=== PATIENT | female | born 1955 | race Caucasian/White ===

== ENCOUNTER → 2017-02-27 | Outpatient (CLI) | payer BC ==
--- NOTE | 2017-02-27 13:43 | MM ---
Reason for exam: screening (asymptomatic). Last mammogram was performed 1 year and 11 months ago. History: Patient is postmenopausal, has history of breast cancer at age 55, and history of other cancer. Benign US LT VAD breast biopsy of the left breast, May 29, 2012. Malignant US RT VAD breast biopsy of the right breast, August 19, 2011. Lumpectomy of the right breast, August 2010. Radiation therapy, 2010. Ultrasound-guided core biopsy of the left breast, March 25, 2002. Benign core biopsy of the left breast, 2001. Took estrogen for 4 years beginning at age 45. Physical Findings: A clinical breast exam by your physician is recommended on an annual basis and results should be correlated with mammographic findings. MG 3D Diag Mammo W/Cad EMILY Bilateral CC and MLO view(s) were taken. Prior study comparison: March 16, 2015, bilateral MG diagnostic mammo w CAD EMILY. March 15, 2014, bilateral MG diagnostic mammo w CAD EMILY. The breast tissue is heterogeneously dense. This may lower the sensitivity of mammography. Post biopsy change in the left breast. Post therapy/lumpectomy change in the right breast. These results were verbally communicated with the patient and result sheet given to the patient on 02/27/17. ASSESSMENT: Benign, BI-RAD 2 RECOMMENDATION: Routine screening mammogram of both breasts in 1 year.
== END | disposition home or self-care (01) ==
LOC: RADMAMWWP 12:54
PROVIDERS: ATTEND Family Medicine
DX: R92.8 Other abnormal and inconclusive findings on diagnostic imaging of breast (principal); Z85.3 Personal history of malignant neoplasm of breast
CPT/HCPCS: G0204; G0279

== ENCOUNTER 2017-10-31 06:49 | Day surgery (SDC) | payer BC ==
[2017-10-28 11:59] VITALS: BMI 32.8
[~2017-10-31 06:49] MED LIST: LACTATED RINGERS 1,000 ML IV SCH; LIDOCAINE 1% 20 ML VIAL (10MG/ML) FOR IV START INTRADERMA PRN; MIDAZOLAM 2 MG/2 ML VIAL IV PRN
[2017-10-31 07:17] VITALS: RESP 20; TEMP 98.2
[2017-10-31 07:21] LABS: Glucose,Whole Blood 96 mg/dL (75-99)
[2017-10-31] MEDS ORDERED: PROPOFOL 10 MG/ML 20 ML VIAL IV ONE (07:36)
--- NOTE | 2017-10-31 08:07 | P.PCN ---
Date of Procedure: 10/31/17 Procedure(s) Performed: Brief history: Patient is a pleasant 62-year-old white female, scheduled for an elective upper endoscopy as well as colonoscopy as a part of evaluation of long-standing history of GERD and prior history of colon polyps Procedure performed: Esophagogastroduodenoscopy with biopsy Colonoscopy with biopsy and snare polypectomy Preoperative diagnosis: GERD History of colon polyps Anesthesia: MAC Procedure: After informed consent was obtained from the patient was brought into the endoscopy unit and IV sedation was administered by anesthesia under continuous monitoring. Initially upper endoscopy was done. The Olympus GF 160 video endoscope was inserted inserted into the mouth and esophagus intubated without any difficulty and was gradually advanced into the stomach and duodenum and carefully examined. The bulb and second part of the duodenum appeared normal. The scope was then withdrawn into the stomach adequately insufflated with air and upon careful examination the antrum and body, cardia and fundus appeared normal. The scope was then withdrawn into the esophagus. The GE junction was located at 40 cm to the incisors. It appeared regular with no erythema erosions or ulcerations. Rest of the esophagus appeared normal. Patient tolerated the procedure well. At this time the patient continued to remain sedation. Initial digital rectal examination was normal. Olympus CF 160 video colonoscope was then inserted into the rectum and gradually advanced to the cecum without any difficulty. Careful examination was performed as the scope was gradually being withdrawn. The prep was excellent. The cecum, ascending colon, appeared normal. In the transverse colon there was a 2-3 mm sessile polyp removed by biopsy. The rest of the transverse colon, descending colon, sigmoid colon and rectum appeared normal. The distal rectum there was a 1 cm polyp removed by snare polypectomy. Scattered sigmoid diverticulosis. Retroflexion was performed in the rectum and no lesions were noted. Patient tolerated the procedure well. Impression: 1. Upper endoscopy revealed moderate size hiatal hernia, short segment [place]' s esophagus and gastritis 2. Coloscopy revealed 2-3 mm sessile transverse colon polyp status post removal by biopsy and 1 cm rectal polyp status post polypectomy. Scattered sigmoid diverticulosis Recommendations: Findings of this examination were discussed with the patient as well as her family. She was advised to follow with the biopsy results. She will continue with omeprazole 20 mg twice daily and follow antrum reflux measures. She can have a repeat colonoscopy in 5 years.
[2017-10-31 08:22] LABS: Glucose,Whole Blood 99 mg/dL (75-99)
[2017-10-31 08:33] VITALS: BP 134/79; PULSE 64
== END 2017-10-31 09:07 | disposition home or self-care (01) ==
LOC: ORWHC2ENDO 06:49
PROVIDERS: ATTEND Internal Medicine Gastroenterology
DX: Z12.11 Encounter for screening for malignant neoplasm of colon (principal); K29.50 Unspecified chronic gastritis without bleeding; K22.70 Barrett's esophagus without dysplasia; D12.3 Benign neoplasm of transverse colon; K62.1 Rectal polyp; K57.30 Diverticulosis of large intestine without perforation or abscess without bleeding; K44.9 Diaphragmatic hernia without obstruction or gangrene; K21.9 Gastro-esophageal reflux disease without esophagitis; I10 Essential (primary) hypertension; E78.5 Hyperlipidemia, unspecified; E11.9 Type 2 diabetes mellitus without complications; Z79.4 Long term (current) use of insulin; Z79.899 Other long term (current) drug therapy; Z88.1 Allergy status to other antibiotic agents; Z88.5 Allergy status to narcotic agent
CPT/HCPCS: 88305; 45380; 45385; 43239; J2704

== ENCOUNTER → 2019-02-25 | Outpatient (CLI) | payer BC | END | disposition home or self-care (01) | LOC: RADUSWWP 12:11 | PROVIDERS: ATTEND Internal Medicine Hematology & Oncology | DX: Z53.9 Procedure and treatment not carried out, unspecified reason (principal) ==

== ENCOUNTER → 2019-02-25 | Outpatient (CLI) | payer BC ==
--- NOTE | 2019-02-25 14:14 | US ---
EXAMINATION TYPE: US abdomen complete DATE OF EXAM: 02/25/2019 COMPARISON: NONE CLINICAL HISTORY: D72.820. Lymphocytosis, history of breast cancer EXAM MEASUREMENTS: Liver Length: 17.5 cm Gallbladder Wall: 0.3 cm CBD: 0.4 cm Spleen: 12.1 cm Right Kidney: 11.1 x 4.8 x 4.0 cm Left Kidney: 10.9 x 4.9 x 4.6 cm Technical limitations due to large amount of overlying bowel content Pancreas: Obscured by bowel gas Liver: There is increased echogenicity of the hepatic parenchyma with diminished visualization of the portal triads most commonly relating to hepatic steatosis and limiting evaluation for underlying hep atic masses. Gallbladder: no evidence of stones Evidence for sonographic Alba's sign: no CBD: wnl Spleen: wnl Right Kidney: no evidence of hydronephrosis Left Kidney: no evidence of hydronephrosis Upper IVC: wnl Abd Aorta: visualized portions appear wnl The intrahepatic portion of the IVC and proximal abdominal aorta are within normal limits. There is no evidence of cholelithiasis. Common bile duct is unremarkable. The visualized portions of the floyd creas are homogenous. The spleen is unremarkable. Kidneys are symmetric and free of hydronephrosis. No renal lesions are seen. IMPRESSION: 1. Sonographic findings most commonly related to hepatic steatosis. Correlate with liver function israel ts. This limits evaluation for hepatic masses. In this patient with breast cancer there is concern fo r metastasis three-phase enhanced CT or MR would be recommended. 2. No evidence of splenomegaly.
--- NOTE | 2019-02-26 07:37 | MM ---
Reason for exam: additional evaluation requested from prior study. Last mammogram was performed 2 years ago. History: Patient is postmenopausal, has history of breast cancer at age 55, and history of other cancer. Benign US LT VAD breast biopsy of the left breast, May 29, 2012. Malignant US RT VAD breast biopsy of the right breast, August 19, 2011. Lumpectomy of the right breast, August 2010. Radiation therapy, 2010. Ultrasound-guided core biopsy of the left breast, March 25, 2002. Benign core biopsy of the left breast, 2001. Took estrogen for 4 years beginning at age 45. Physical Findings: Nurse Summary: 0.5cm nodule in the left breast at 12 o'clock (nurse dw). MG Diagnostic Mammo w CAD EMILY Bilateral CC and MLO view(s) were taken. Prior study comparison: February 27, 2017, bilateral MG 3d diag mammo w/cad EMILY. March 16, 2015, bilateral MG diagnostic mammo w CAD EMILY. The breast tissue is heterogeneously dense. This may lower the sensitivity of mammography. Left lateral far posterior depth asymmetry improves on spot compression view and 3D view appears as fibroglandular tissue. Precautionary ultrasound. These results were verbally communicated with the patient and result sheet given to the patient on 02/25/19. ASSESSMENT: Incomplete: need additional imaging evaluation, BI-RAD 0 RECOMMENDATION: Ultrasound of the left breast.
--- NOTE | 2019-02-26 07:38 | USB ---
Reason for exam: additional evaluation requested from abnormal screening. History: Patient is postmenopausal, has history of breast cancer at age 55, and history of other cancer. Benign US LT VAD breast biopsy of the left breast, May 29, 2012. Malignant US RT VAD breast biopsy of the right breast, August 19, 2011. Lumpectomy of the right breast, August 2010. Radiation therapy, 2010. Ultrasound-guided core biopsy of the left breast, March 25, 2002. Benign core biopsy of the left breast, 2001. Took estrogen for 4 years beginning at age 45. US Breast Limited LT Left limited breast ultrasound including focal area of concern, retroareolar and axilla demonstrates a 0.5 x 0.4 x 0.6cm cystic lesion at 12 o'clock, a 0.4 x 0.4 x 0.4cm lesion too small to characterize at 2 o'clock and a 0.4 x 0.4 x 0.4cm cystic lesion at 4 o'clock. Benign. These results were verbally communicated with the patient and result sheet given to the patient on 02/25/19. ASSESSMENT: Benign, BI-RAD 2 RECOMMENDATION: Follow-up diagnostic mammogram of both breasts in 1 year.
== END | disposition home or self-care (01) ==
LOC: RADMAMWWP 12:13
PROVIDERS: ATTEND Family Medicine
DX: R92.8 Other abnormal and inconclusive findings on diagnostic imaging of breast (principal); K76.0 Fatty (change of) liver, not elsewhere classified; K76.89 Other specified diseases of liver; D72.820 Lymphocytosis (symptomatic); Z85.3 Personal history of malignant neoplasm of breast; Z88.1 Allergy status to other antibiotic agents
CPT/HCPCS: 76700; 77066

== ENCOUNTER → 2019-05-14 | Outpatient (CLI) | payer BC ==
--- NOTE | 2019-05-14 14:06 | US ---
EXAMINATION TYPE: US thyroid st tissue head/neck DATE OF EXAM: 05/14/2019 COMPARISON: NONE CLINICAL HISTORY: E04.1 non toxic single nodule. Patient states having an exam done elsewhere at the showed a thyroid nodule. GLAND SIZE: Right Lobe: 5.5 x 2.4 x 2.0 cm Overall Parenchyma: heterogenous Left Lobe: 3.1 x 1.3 x 1.3 cm Overall Parenchyma: heterogeneous Isthmus Thickness: 0.7 cm NODULES RIGHT: # of nodules measured on right: 2 1. 3.3 X 2.8 x 2.7 cm mixed nodule at the lower pole with well-defined margins. This nodule is wid er than tall and shows intranodular vascularity. Prior size: No previous 2. 0.5 X 0.3 x 0.3 cm hypoechoic nodule at the upper pole with well-defined margins. This nodule is tall as wide and shows no intranodular vascularity. Prior size: No previous LEFT: # of nodules measured on left: 1 1. 0.6 X 0.5 x 0.4 cm hypoechoic nodule at the mid pole with well-defined margins. This nodule is wider than tall and shows no intranodular vascularity. Prior size: No previous ISTHMUS: # of nodules measured in the isthmus: 1 1. 0.7 X 0.8 x 0.6 cm hypoechoic nodule at the left lateral pole with well-defined margins. This n odule is wider than tall and shows intranodular vascularity. Prior size: No previous Bilateral neck scanned, no evidence of lymphadenopathy. IMPRESSION: 3.3 cm right thyroid nodule for which fine-needle aspiration is recommended given the siz e. Smaller subcentimeter thyroid nodules can be followed.
== END | disposition home or self-care (01) ==
LOC: RADUSWWP 12:14
PROVIDERS: ATTEND Family Medicine
DX: E04.2 Nontoxic multinodular goiter (principal)
CPT/HCPCS: 76536

== ENCOUNTER → 2019-05-17 | Outpatient (CLI) | payer BC ==
--- NOTE | 2019-05-19 22:20 | MR ---
EXAMINATION TYPE: MR abdomen wo con DATE OF EXAM: 05/17/2019 COMPARISON: NONE HISTORY: 63-year-old female D44.11 Neoplasm, hx of CA of right adrenal gland. TECHNIQUE: Multiplanar, multisequence images of the abdomen were obtained without IV contrast. The pa tient was claustrophobic and was unable to complete the exam. FINDINGS: Excessive motion artifacts for adequate assessment of hepatic steatosis. Liver is mildly enlarged 18. 6 cm. No biliary ductal dilatation. Gallbladder within normal limits. 2.2 cm cyst upper pole left kidney. Small 1 cm cortical cyst midpole right kidney. Spleen, left adrenal gland, and pancreas show no gross abnormality on these limited noncontrast image s. Suggestion of an underlying 2.0 cm nodule within the right adrenal gland, refer to coronal series 201 image 28. There is excessive motion artifact on the axial T1-weighted sequences for adequate visuali zation. No obvious upper abdominal lymphadenopathy, ascites fluid, or gross bowel abnormality seen. IMPRESSION: 1. The exam had to be stopped as the patient was claustrophobic and could not continue. Only a joyner l T2 sequence and multiple motion degraded axial T1 sequences were obtained. 2. Hepatomegaly at 18.6 cm. The extent of patient motion does not allow for accurate assessment of he patic steatosis or for focal lesions. 3. A couple renal cortical cysts. 4. Apparent nodularity of the right adrenal gland measuring 2.0 cm. This is only seen on coronal seri es. The extent of motion on the axial T1-weighted sequences does not allow adequate visualization. Consider repeating the exam with sedation or pursuing contrasted enhanced CT.
== END | disposition home or self-care (01) ==
LOC: RADMRIMAIN 12:36
PROVIDERS: ATTEND Physician Assistant Medical
DX: N28.1 Cyst of kidney, acquired (principal); R16.0 Hepatomegaly, not elsewhere classified; E27.8 Other specified disorders of adrenal gland; D44.12 Neoplasm of uncertain behavior of left adrenal gland; Z85.3 Personal history of malignant neoplasm of breast; Z85.830 Personal history of malignant neoplasm of bone
CPT/HCPCS: 74181

== ENCOUNTER 2019-06-11 12:47 | Day surgery (SDC) | payer BC ==
[2019-06-11 13:13] VITALS: RESP 18; TEMP 97.4
[2019-06-11 14:07] VITALS: BP 112/76; PULSE 94
--- NOTE | 2019-06-11 15:39 | US ---
EXAMINATION TYPE: US FNA thyroid first lesion DATE OF EXAM: 06/11/2019 COMPARISON: Ultrasound 05/14/2019 HISTORY: Right Thyroid nodule. Maximal barrier technique was utilized. After informed consent, skin overlying the right thyroid nod ule was localized with ultrasound and the overlying skin prepped and draped. Ultrasound was utilized using sterile technique. Lidocaine was used for local anesthesia. Five passes with a 25-gauge needle were made into the nodule and aspirated specimen was submitted to cytology. Following the procedure hemostasis achieved. No immediate complication. The patient discharged in stable condition. IMPRESSION: STATUS POST ULTRASOUND GUIDED FINE NEEDLE ASPIRATION OF THYROID NODULE, PATHOLOGY IS PEND ING. THIS PROCEDURE WAS PERFORMED BY THE UNDERSIGNED.
== END 2019-06-11 14:28 | disposition home or self-care (01) ==
LOC: RADPROMAIN 12:47
PROVIDERS: ATTEND Family Medicine
DX: E04.1 Nontoxic single thyroid nodule (principal)
CPT/HCPCS: 10005; 88173; 88305

== ENCOUNTER → 2019-06-17 | Outpatient (CLI) | payer BC ==
[2019-06-17 14:53] LABS: African American GFR (CKD) >90 (>60 ml/min/1.73 sqM); Blood Urea Nitrogen 20 mg/dL (7-17); Non-African American GFR(CKD) >90 (>60 ml/min/1.73 sqM)
--- NOTE | 2019-06-17 15:49 | CT ---
EXAMINATION TYPE: CT abdomen w con DATE OF EXAM: 06/17/2019 HISTORY: Adrenal gland neoplasm CT DLP: 1244mGycm Automated Exposure Control for Dose Reduction was Utilized. CONTRAST: CT scan of the abdomen is performed with oral and with IV Contrast, patient injected with 100 mL of I sovue 300. COMPARISON: CT September 27, 2009. MR abdomen May 17, 2019. FINDINGS: LUNG BASES: Partial visualization of suspected prominent tissue bilateral breast with possible biopsy clip or dystrophic calcification axial image 1 series 7. LIVER/GB: Liver is overall low dense consistent with diffuse fatty infiltration. Liver size stable an d is thought upper limits of normal. PANCREAS: No significant abnormality is seen. SPLEEN: Small splenule in splenic hilum. ADRENALS: There is 2.3 x 1.4 cm right adrenal mass axial image 20 which is new from 2010 study. This is fairly stable from recent MRI. There is suspected some signal dropout favoring lipid rich adenoma. CT was not protocoled in adrenal gland protocol to further evaluate. KIDNEYS: Simple appearing thin-walled 2.0 cm cyst posteriorly left kidney measures 29 series 7 upper midpole level. BOWEL: New Eehon-rs-lfrsvnyl size hiatal hernia. LYMPH NODES: No greater than 1cm abdominal lymph nodes are appreciated. OSSEOUS STRUCTURES: Multilevel spurring in the thoracolumbar spine with slight scoliotic curvature. OTHER: Stable right adrenal mass favoring benign lipid rich adenoma but is concerning due to being ne w from 2010 CT. Suboptimally evaluated on this study as was not performed adrenal protocol which incl udes without and with IV contrast imaging. IMPRESSION: No significant acute finding is seen to account for patient's clinical symptoms.
== END | disposition home or self-care (01) ==
LOC: RADCTMAIN 13:58
PROVIDERS: ATTEND Physician Assistant Medical
DX: D44.12 Neoplasm of uncertain behavior of left adrenal gland (principal); D44.11 Neoplasm of uncertain behavior of right adrenal gland; Z85.3 Personal history of malignant neoplasm of breast; E11.65 Type 2 diabetes mellitus with hyperglycemia; E78.2 Mixed hyperlipidemia
CPT/HCPCS: 82565; 84520; 74160; 36415; Q9967

== ENCOUNTER → 2019-12-30 | Outpatient (CLI) | payer MEDICARE, BC ==
[2019-12-30 14:24] LABS: African American GFR (CKD) >90 (>60 ml/min/1.73 sqM); Blood Urea Nitrogen 22 mg/dL (7-17); Non-African American GFR(CKD) >90 (>60 ml/min/1.73 sqM)
--- NOTE | 2019-12-30 15:23 | CT ---
EXAMINATION TYPE: CT abdomen wo/w con DATE OF EXAM: 12/30/2019 COMPARISON: 06/17/2019 and 09/27/2009 HISTORY: Neoplasm, uncertain behavior adrenal gland. CT DLP: 2323.2 mGycm CONTRAST: CT scan of the abdomen and pelvis is performed with Oral Contrast and without and with IV Contrast, p atient injected with 100 mL of Isovue M300. FINDINGS: LUNG BASES-: No visible nodule. No infiltrate. LIVER/GB: No calcified gallstones. Fatty liver noted. No space occupying hepatic lesion. Biliary tr ee is of normal caliber. PANCREAS: No inflammation. No distinct mass. SPLEEN: No splenic enlargement. No lesion seen. ADRENALS: Bilateral adrenal nodules are noted dating back to 2009. Right adrenal nodule currently jacey sures 1.4 x 2.4 cm versus 2.4 x 1.4 cm on the recent previous. Left adrenal nodule is unchanged at th at 1 cm. KIDNEYS/BLADDER: No hydronephrosis. No nephrolithiasis. Renal cystic changes identified. Urinary bl adder grossly unremarkable. BOWEL: Normal appendix. Normal bowel caliber. No inflammation. GENITAL ORGANS: No gross abnormality. LYMPH NODES: No greater than 1cm abdominal or pelvic lymph nodes are appreciated. AORTA: No significant abnormality. OSSEOUS STRUCTURES: No significant abnormality is seen. OTHER: No significant additional abnormality is seen. IMPRESSION: 1. Stable adrenal adenomas. 2. Fatty liver. 3. Renal cystic changes.
== END | disposition home or self-care (01) ==
LOC: RADCTMAIN 13:44
PROVIDERS: ATTEND Family Medicine
DX: K76.0 Fatty (change of) liver, not elsewhere classified (principal); D35.00 Benign neoplasm of unspecified adrenal gland; N28.1 Cyst of kidney, acquired; D44.11 Neoplasm of uncertain behavior of right adrenal gland; D44.12 Neoplasm of uncertain behavior of left adrenal gland; Z01.812 Encounter for preprocedural laboratory examination
CPT/HCPCS: 82565; 84520; 74170; 36415; Q9967 ×2

== ENCOUNTER → 2020-06-02 | Outpatient (CLI) | payer MEDICARE, BC ==
--- NOTE | 2020-06-05 08:20 | MM ---
Reason for exam: additional evaluation requested from prior study. Last mammogram was performed 1 year and 3 months ago. History: Patient is postmenopausal, has history of breast cancer at age 55, and history of other cancer. Benign US LT VAD breast biopsy of the left breast, May 29, 2012. Malignant US RT VAD breast biopsy of the right breast, August 19, 2011. Lumpectomy of the right breast, August 2010. Radiation therapy, 2010. Ultrasound-guided core biopsy of the left breast, March 25, 2002. Benign core biopsy of the left breast, 2001. Took estrogen for 4 years beginning at age 45. Physical Findings: Nurse Summary: 0.5cm nodule in the left breast at 12 o'clock nipple (nurse dw). MG Diagnostic Mammo w CAD EMILY Bilateral CC and MLO view(s) were taken. Prior study comparison: February 25, 2019, bilateral MG diagnostic mammo w CAD EMILY. February 27, 2017, bilateral MG 3d diag mammo w/cad EMILY. The breast tissue is heterogeneously dense. This may lower the sensitivity of mammography. There are benign appearing round calcifications bilaterally. Previous mammotome biopsy in the left breast. There is no discrete abnormality. These results were verbally communicated with the patient and result sheet given to the patient on 06/02/20. ASSESSMENT: Incomplete: need additional imaging evaluation, BI-RAD 0 RECOMMENDATION: Ultrasound of the left breast.
--- NOTE | 2020-06-05 08:22 | USB ---
Reason for exam: additional evaluation requested from abnormal screening. History: Patient is postmenopausal, has history of breast cancer at age 55, and history of other cancer. Benign US LT VAD breast biopsy of the left breast, May 29, 2012. Malignant US RT VAD breast biopsy of the right breast, August 19, 2011. Lumpectomy of the right breast, August 2010. Radiation therapy, 2010. Ultrasound-guided core biopsy of the left breast, March 25, 2002. Benign core biopsy of the left breast, 2001. Took estrogen for 4 years beginning at age 45. US Breast Limited LT Left limited breast ultrasound including focal area of concern, retroareolar and axilla demonstrates a 0.4 x 0.6 x 0.3cm oval, complex, cystic, stable lesion at 12 o'clock BB, a linear, hyperechoic clip or dystrophic calcifications at 3 o'clock questionable BB marker and a 2.8 x 1.7 x 0.8cm lymph node at the axilla, benign fatty hilum. These results were verbally communicated with the patient and result sheet given to the patient on 06/02/20. ASSESSMENT: Benign, BI-RAD 2 RECOMMENDATION: Routine screening mammogram of both breasts in 1 year.
== END | disposition home or self-care (01) ==
LOC: RADMAMWWP 14:23
PROVIDERS: ATTEND Family Medicine
DX: N63.20 Unspecified lump in the left breast, unspecified quadrant (principal)
CPT/HCPCS: 77066

== ENCOUNTER → 2020-06-02 | Outpatient (CLI) | payer MEDICARE, BC ==
--- NOTE | 2020-06-02 16:14 | XR ---
EXAMINATION TYPE: XR chest 2V DATE OF EXAM: 06/02/2020 COMPARISON: None INDICATION: History of sarcoma TECHNIQUE: Frontal and lateral views of the chest are obtained. FINDINGS: The heart size is normal. The pulmonary vasculature is normal. Some mild infiltrate may be at the cardiac apex. Correlate for lingular atelectasis.. IMPRESSION: 1. May be some lingular atelectasis. 2. Suspicious changes to suggest metastasis are not identified
== END | disposition home or self-care (01) ==
LOC: RADXRMAIN 15:41
PROVIDERS: ATTEND Physician Assistant
DX: C49.22 Malignant neoplasm of connective and soft tissue of left lower limb, including hip (principal); Z88.1 Allergy status to other antibiotic agents; Z88.8 Allergy status to other drugs, medicaments and biological substances
CPT/HCPCS: 71046

== ENCOUNTER → 2023-05-28 | Outpatient (CLI) | payer MEDICARE ==
--- NOTE | 2023-05-28 15:01 | XR ---
EXAMINATION TYPE: XR chest 2V DATE OF EXAM: 05/28/2023 COMPARISON: NONE HISTORY: Cough, shortness of breath and wheezing. TECHNIQUE: Frontal and lateral views of the chest are obtained. FINDINGS: There are some patchy airspace opacity throughout the left lung which is suspicious for pn eumonia. The right lung is clear. The cardiac silhouette and pulmonary vessels are within normal limits. IMPRESSION: Opacity throughout the left lung is suspicious for pneumonia. Follow to resolution is re commended.
== END | disposition home or self-care (01) ==
LOC: RADXRYALE 14:42
PROVIDERS: ATTEND Physician Assistant
DX: R05.1 Acute cough (principal); R06.02 Shortness of breath; R91.8 Other nonspecific abnormal finding of lung field
CPT/HCPCS: 71046

== ENCOUNTER → 2023-06-17 | Outpatient (CLI) | payer MEDICARE ==
--- NOTE | 2023-06-21 18:04 | XR ---
EXAMINATION TYPE: XR chest 2V DATE OF EXAM: 06/17/2023 9:45 AM CLINICAL INDICATION:Female, 67 years old with history of [id number] COUGH,SOB; [facility]. Sarcoma history. COMPARISON: 05/28/2023 and 06/02/2020 chest x-rays TECHNIQUE: XR chest 2V. Frontal PA and lateral views of the chest. FINDINGS: Lines/Tubes: None. Heart/mediastinum: Cardiomediastinal silhouette is stable. Heart size upper normal. The aorta appea rs mildly tortuous, a finding usually associated with either atherosclerosis or systemic hypertension . Pulmonary vascularity: Not increased. Lungs/Pleura: Examination limited by patient body habitus. Apparent opacity over the left mid to lowe r lung appears less prominent than 05/28/2023, now more similar to 06/02/2020. This may represent digestion operator earline changes and soft tissue overlap but other etiology cannot be excluded. No pleural effusion or pne umothorax. Mild chronic interstitial changes again noted. Musculoskeletal: No acute osseous abnormality demonstrated in the limits of the exam. Moderate degen erative changes of the spine and partially visualized shoulders. Other findings: None. IMPRESSION: 1. Improved apparent opacity over the left lung, as described. This may represent chronic changes an d soft tissue overlap, but other etiology cannot be excluded. Given the cancer history, one may consi costa CT of the chest for better evaluation, versus continued radiographic follow-up. 2. Otherwise no acute finding.
== END | disposition home or self-care (01) ==
LOC: RADXRYALE 09:35
PROVIDERS: ATTEND Physician Assistant
DX: R91.8 Other nonspecific abnormal finding of lung field (principal); R05.9 Cough, unspecified; R06.02 Shortness of breath; Z85.89 Personal history of malignant neoplasm of other organs and systems
CPT/HCPCS: 71046

== ENCOUNTER → 2023-07-03 | Outpatient (CLI) | payer MEDICARE ==
[2023-07-03 14:12] LABS: African American GFR (CKD) >90 (>60 ml/min/1.73 sqM); Blood Urea Nitrogen 19 mg/dL (7-17); Non-African American GFR(CKD) 90 (>60 ml/min/1.73 sqM)
--- NOTE | 2023-07-03 15:27 | CT ---
EXAMINATION TYPE: CT chest wo/w con DATE OF EXAM: 07/03/2023 COMPARISON: Most recent chest x-ray June 17, 2023 and older studies HISTORY: COUGH AND SOB X3 MONTHS. COMPARE TO ABNORMAL PRIOR CXR. CT DLP: 1019.70 mGycm. Automated Exposure Control for Dose Reduction was Utilized. TECHNIQUE: CT scan of the thorax is performed following without and with IV Contrast, patient inject ed with 100ML mL of Isovue 300. FINDINGS: LUNGS: Reticulonodular opacities in the left lung with relative sparing of the apex remain present. S ome less prominent areas of involvement in the right lung base are noted. No pleural effusion or pneu mothorax is seen bilaterally. Few scattered micronodules in the right lung, for reference is 5 mm rig ht lower lobe nodule axial image 34 posteriorly. Mild left basilar linear scarring and/or atelectasis . No focal consolidation. No greater than 6 mm pulmonary nodules or masses. Some areas of mucous plug ging in the lower lungs is thought present bilaterally. MEDIASTINUM: Coronary artery calcification is present which is noted marker for underlying coronary a rtery disease. Prominent but subcentimeter paratracheal lymph node axial image 16. No definitive grea ter than 1 cm bilateral hilar or mediastinal adenopathy. Prominent but subcentimeter pericardial lymp h node axial image 37 no cardiomegaly or pericardial effusion. OTHER: Moderate size hiatal hernia containing intra-abdominal fat. Liver is diffusely low dense on no ncontrast images relative to the spleen consistent with fatty infiltrative hepatocellular disease. Bi lateral small thin-walled cysts in both kidneys are partially imaged. Slight scoliotic curvature with moderate multilevel spurring in the thoracic spine. IMPRESSION: Reticulonodular opacities diffusely throughout the left lung except sparing the apex and patchy similar opacities right lung base, given finding of improving opacities on most recent x-rays resolving atypical infection would be favored. Other etiologies are not excluded and strict clinical correlation is advised.
== END | disposition home or self-care (01) ==
LOC: RADCTMAIN 13:29
PROVIDERS: ATTEND Family Medicine
DX: Z01.812 Encounter for preprocedural laboratory examination (principal); R06.02 Shortness of breath; R05.9 Cough, unspecified; R91.8 Other nonspecific abnormal finding of lung field; R93.89 Abnormal findings on diagnostic imaging of other specified body structures; Z85.3 Personal history of malignant neoplasm of breast; Z85.830 Personal history of malignant neoplasm of bone
CPT/HCPCS: 82565; 84520; 71270; 36415; Q9967

== ENCOUNTER → 2023-12-10 | Outpatient (CLI) | payer MEDICARE ==
--- NOTE | 2023-12-14 09:27 | MR ---
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 TECHNIQUE: Multiplanar multi-sequence imaging was performed without contrast. Post contrast imaging was performed. Post IV contrast subtraction images were also submitted for review. IV Contrast: 10 cc Gadavist FINDINGS: LOWER CHEST: Atelectasis changes in the lingula. Nonenlarged right epicardial fat lymph nodes measuri ng up to 5 mm in short axis. ABDOMEN Liver: No evidence for cirrhosis. Signal dropout on chemical shift out of phase imaging. Gallbladder and Bile ducts: No evidence for ductal dilation, or biliary stricture or evidence of chol edocholithiasis. The gallbladder demonstrates high T1 intrinsic gallstones layering dependently withe suspected adherent stone along the lateral wall. Pancreas: No ductal dilation. No evidence for solid mass. Spleen: Normal for size. Adrenal glands: Right adrenal nodule measuring up to 30 mm with signal dropout on chemical shift of p hase imaging compatible with adrenal adenoma. Possible small adrenal adenoma in the left adrenal glan d measuring 9 mm. Kidneys: Enhancing right renal cyst neoplasm measuring 21 mm with an adjacent 22 mm cyst. Left renal cysts measuring up tor 29 mm. No suspicious left renal neoplasms. No evidence of involvement within t he renal vein or evidence for lymphadenopathy within the abdomen or pelvis. Stomach and Bowel: Small hiatal hernia. No evidence for bowel wall thickening or evidence for obstruc tion. Retroperitoneum/Peritoneum: No evidence of pneumoperitoneum or free fluid. Vasculature: No aortic aneurysm. Musculoskeletal: The osseous structures appear intact. Lymph Nodes: No gross evidence for lymphadenopathy. Abdominal wall: Unremarkable. IMPRESSION: 1. Enhancing right renal neoplasm concerning for renal cell carcinoma measuring up to 21 mm urology consultation recommended. No suspicious enlarged lymph nodes or evidence of involvement within the re nal vein. 2. Additional bilateral Bosniak type I equivalent renal cysts. 3. Hepatic steatosis. 4. Right adrenal adenoma and possible left adenoma also present. 5. Small hiatal hernia. 6. Cholelithiasis with intrinsic high T1 signal suspected adhered gallstone to the wall.
== END | disposition home or self-care (01) ==
LOC: RADMRIMAIN 08:39
PROVIDERS: ATTEND Internal Medicine Hematology & Oncology
DX: K76.0 Fatty (change of) liver, not elsewhere classified (principal); N28.1 Cyst of kidney, acquired; C50.919 Malignant neoplasm of unspecified site of unspecified female breast; K44.9 Diaphragmatic hernia without obstruction or gangrene; K80.20 Calculus of gallbladder without cholecystitis without obstruction; D35.01 Benign neoplasm of right adrenal gland; C91.10 Chronic lymphocytic leukemia of B-cell type not having achieved remission
CPT/HCPCS: 74183; A9585